=== PATIENT | male | born 1975 | race African-American/Black ===

== ENCOUNTER 2024-10-25 12:58 | Emergency (ER) | payer MEDICAID ==
[~2024-10-25] VITALS: Ht 190.5 cm; Wt 113.0 kg
[2024-10-25 13:00] VITALS: O2SAT 96
[2024-10-25] MEDS: SODIUM CHLORIDE 0.9% 1,000 ML IV ONE (13:33)
[2024-10-25] MEDS: LEVETIRACETAM 1000MG PREMIX 100 ML IV ONE (13:33)
[2024-10-25 14:07] LABS: CARBON DIOXIDE 18 mEq/L (21-32); CHLORIDE 107 mEq/L (98-107); POTASSIUM 4.8 mEq/L (3.5-5.1); SODIUM 138 mEq/L (136-145)
[2024-10-25 14:08] LABS: CALCIUM 9.5 mg/dL (8.7-10.4)
[2024-10-25 14:10] LABS: BASOPHILS % 0.8 % (0.0-2.0); EOSINOPHILS % 0.6 % (0.0-5.0); HEMATOCRIT. 44.2 % (42.0-52.0); HEMOGLOBIN. 14.3 g/dL (14.0-18.0); LYMPHOCYTES % 25.2 % (20.0-50.0); MEAN CORPUSCULAR HEMOGLOBIN 28.5 pg (28.0-32.0); MEAN CORPUSCULAR HGB CONC 32.3 g/dL (31.0-37.0); MEAN CORPUSCULAR VOLUME 88.2 fL (80.0-94.0); MEAN PLATELET VOLUME 8.1 fl (7.4-10.4); MONOCYTES % 3.8 % (2.0-8.0); NEUTROPHILS % 69.6 % (40.0-76.0); PLATELET 243 x1000/uL (130-400); RED BLOOD CELL COUNT 5.02 mill/uL (4.7-6.1); RED CELL DISTRIBUTION WIDTH 14.2 % (11.6-14.6); WHITE BLOOD COUNT 7.4 x1000/uL (4.5-11.0)
[2024-10-25 14:12] LABS: CREATININE 1.1 mg/dL (0.6-1.3)
[2024-10-25 14:13] LABS: GLUCOSE 132 mg/dL (70-105); UREA NITROGEN BLOOD 10 mg/dL (9-23)
[2024-10-25 14:18] LABS: ETHANOL BLOOD < 10 mg/dL (<10); PHENOBARBITAL < 3.0 ug/mL (15.0-40.0); PHENYTOIN < 2.0 ug/mL (10-20); TROPONIN I HIGH SENSITIVITY < 4 ng/L (3.0-53)
[2024-10-25 14:19] LABS: CARBAMAZEPINE < 0.4 ug/mL (4-12); VALPROIC ACID < 3.0 ug/mL (50-100)
[2024-10-25 14:21] LABS: INR 0.9; PROTHROMBIN TIME 10.2 sec (9.6-11.0)
[2024-10-25] MEDS ORDERED: KEPP500 MT (15:29)
[2024-10-25 16:00] VITALS: BP 128/83; PULSE 99; RESP 18; TEMP 36.2; O2SAT 9
== END 2024-10-25 16:15 | disposition home or self-care (01) ==
LOC: ER 12:58
DX: R56.9 Unspecified convulsions (principal)
CPT/HCPCS: 80048; 80320; 80156; 80185; 80184; 80165; 85025; 85610; 84484; 36415; 71045; 70450; 93005; 96365; 99285; J1953; J7030; Z7610 ×2; A4606; G0480